=== PATIENT | female | born 1990 | race Caucasian/White ===

== ENCOUNTER 2019-12-04 10:50 | Emergency (ER) | payer SELFPAY ==
[2019-12-04 11:08] VITALS: BP 136/71; PULSE 86; RESP 20; TEMP 36.9; O2SAT 100
--- NOTE | 2019-12-04 11:11 | ED.URI ---
HPI - URI/Sore Throat General Chief Complaint: Upper Respiratory Infection Stated Complaint: asthma Source: patient Mode of arrival: ambulatory Limitations: no limitations History of Present Illness HPI Narrative: Pt presents for evaluation of respiratory symptoms for the last two weeks. She states she has a hx of asthma. She recently moved from [place] to [place], as her boyfriend got a new job there. She is currently here visiting her family. She has been here for two weeks and is here through the middle of December. She is helping her parents clean out their house. She states she has been exposed to several environmental allergens. Her father also smokes. She states that these factors have aggravated her asthma. She states she feels as though she cannot catch a deep breath. She also has a nonproductive cough, SOB and nasal congestion. She denies any fever, chills, nausea, vomiting, chest pain. She does not smoke cigarettes but smokes marijuana socially. Symptoms started two weeks ago and have worsened in the last week. She has been using her albuterol neb once daily and albuterol MDI about once every one to three days. She has been taking claritin but states that her nasal congestion has been persistent. She is requesting refills on albuterol neb and MDI. Pertinent past history: asthma and seasonal allergies Onset (ago): week(s) (2) Consistency: intermittent Severity: moderate Description of mucous: clear Able to tolerate fluids by mouth: Yes Exacerbating factors: exertion and other (environmental exposures) Relieving factors: other (albuterol) Associated symptoms: nasal congestion, cough and shortness of breath Treatments prior to arrival: other (albuterol) Related Data Home Medications Medication Instructions Recorded Confirmed albuterol sulfate 1.25 mg INHALATION Q4H 12/04/19 12/04/19 albuterol sulfate [ProAir HFA] INHALATION 12/04/19 alprazolam 0.5 mg PO BID PRN 12/04/19 12/04/19 fluoxetine 10 mg PO DAILY 12/04/19 12/04/19 lisdexamfetamine [Vyvanse] 40 mg PO DAILY 12/04/19 12/04/19 loratadine [Claritin] 10 mg PO DAILY PRN 12/04/19 12/04/19 Allergies Allergy/AdvReac Type Severity Reaction Status Date / Time Sulfa (Sulfonamide Allergy Rash Verified 12/04/19 11:13 Antibiotics) Review of Systems Review of Systems: All systems reviewed & are unremarkable except as noted in HPI and below Constitutional: Constitutional: Reports as per HPI and Reports no additional constitutional complaints Eyes: Eyes: Reports as per HPI and Reports no additional eye complaints ENT: Reports system reviewed and no additional complaints, except as documented, Reports as per HPI and Reports nasal congestion Cardiovascular: Cardiovascular: Reports as per HPI and Reports no additional cardiovascular complaints Respiratory: Respiratory: Reports as per HPI, Reports no additional respiratory complaints, Reports cough and Reports dyspnea Gastrointestinal: Gastrointestinal: Reports as per HPI and Reports no additional gastrointestinal complaints Genitourinary: Genitourinary: Reports no additional female genitourinary complaints and Reports as per HPI Musculoskeletal: Musculoskeletal: Reports no additional musculoskeletal complaints and Reports as per HPI Integumentary/Breasts: Skin/Breast: Reports system reviewed and no additional complaints, except as docu and Reports as per HPI Neurologic: Reports system reviewed and no additional complaints, except as documented and Reports as per HPI Psychiatric: Psychiatric: Reports no additional psychiatric complaints and Reports as per HPI Endocrine: Endocrine: Reports no additional endocrine complaints and Reports as per HPI Hematologic/Lymphatic: Hematologic/Lymphatic: Reports no additional hematologic/lymphatic complaints and Reports as per HPI Allergic/Immunologic: Allergic/Immunologic: Reports no additional allergic/immunologic complaints and Reports as per HPI PMFSH Past Medical His
[2019-12-04] MEDS: methylPREDNISolone SOD SUCC 125 MG VIAL IM (11:18)
== END 2019-12-04 12:05 | disposition home or self-care (01) ==
PROVIDERS: Emergency Provider Nurse Practitioner
DX: J45.909 Unspecified asthma, uncomplicated (principal); F98.8 Other specified behavioral and emotional disorders with onset usually occurring in childhood and adolescence; F41.9 Anxiety disorder, unspecified; F32.9 Major depressive disorder, single episode, unspecified
CPT/HCPCS: 96372; 99203; G0463; J2930